=== PATIENT | male | born 1995 | race Hispanic/Latino ===

== ENCOUNTER 2021-05-07 23:57 | Emergency (ER) | payer OTHER, SELFPAY ==
[2021-05-08 00:25] VITALS: BP 156/99; PULSE 81; RESP 18; TEMP 36.9; O2SAT 100; BMI 26.4
--- NOTE | 2021-05-08 00:36 | ED.GENADULT ---
HPI - General Adult General Chief complaint: Skin/Abscess/Foreign Body Stated complaint: bump/pain on back of head x3 months Time Seen by Provider: 05/08/21 00:29 History of Present Illness HPI narrative: 25-year-old otherwise healthy gentleman who has had a small bump on the occiput of his head that is grown larger in size and now is fluctuant and causing increasing pain. He has not noticed any drainage, there has been no specific trauma to the area, he has had no fevers or chills, he has no neck pain. He denies any cough, palpitations, abdominal pain, or diarrhea. Related Data Allergies Allergy/AdvReac Type Severity Reaction Status Date / Time No Known Drug Allergies Allergy Verified 05/08/21 01:14 Review of Systems Review of Systems Narrative: Remainder of complete review of systems is otherwise unremarkable except for that included in the HPI. Patient History Social History Smoking Status: Never smoker Exam Narrative Exam Narrative: General: Alert appropriate in no acute distress Respiratory: Able to speak in full sentences, no obvious respiratory distress H EENT: There is only 2 x 2 cm fluctuant mass without surrounding cellulitis over the occiput of his head just to the right of midline Skin: No obvious rashes, warm and dry Neurologic: Grossly intact no obvious asymmetries or abnormalities Psych: appropriate insight and affect, cooperative Initial Vital Signs Initial Vital Signs: Vital Signs Temperature 98.4 F 05/08/21 00:25 Pulse Rate 81 05/08/21 00:25 Respiratory Rate 18 05/08/21 00:25 Blood Pressure 156/99 H 05/08/21 00:25 Pulse Oximetry 100 05/08/21 00:25 Procedures Abscess I/D Occiput of head: Time of procedure: 01:12 Site: scalp Local Anesthetic: lidocaine 2% Amount of anesthesia used (mL): 2 Technique: incised with #11 blade Amount of fluid expressed (mL): 8 Irrigation: No Packing used?: none Course Orders Ordered: ED Orders 05/08/21 01:15 Wound Culture and Gram Stain Stat Discontinued Medications Lidocaine HCl (Lidocaine 1% (Pf)) 2 ml INJ NOW ONE Stop: 05/08/21 00:45 Vital Signs Vital signs: Vital Signs - 8 hr 05/08/21 00:25 Temperature 98.4 F Pulse Rate 81 Respiratory Rate 18 Blood Pressure 156/99 H Pulse Oximetry 100 Medical Decision Making MDM Narrative Medical decision making narrative: 25-year-old gentleman with an abscess over the occiput. Initially thought it could be an infected sebaceous cyst however after incising it there was no sebaceous material and quite a bit of pus was returned without any complication. There was no evidence of surrounding cellulitis and antibiotics were not felt to be indicated at this time. He tolerated the procedure well. Wound culture was obtained. He is safe for home discharge Discharge Plan Departure Patient Disposition: Home Clinical Impression: Abscess of skin or subcutaneous tissue Qualifiers: Site of cutaneous abscess: head Qualified Code(s): L02.811 - Cutaneous abscess of head [any part, except face] Instructions: DI for Skin Abscess Activity Restrictions/Additional Instructions: Thank you for coming in tonight This was a small abscess but it does not look like it has infection in the skin surrounding it. I have gotten all of the pus out and at this point, you do not need any antibiotics. I suspect that this started from a small infection at the base of the hair follicle rather than a cyst. It is okay to wash her hair and if there is any additional drainage from the site that is okay too If it seems that it is recurring, you get a fever chills, you notice that it is hurting more or other there is redness around the area, please return to the ER for further evaluation I hope you heal quickly
[2021-05-08] MEDS: LIDOCAINE 1% (PF) 2 ML INJ (01:00)
== END 2021-05-08 01:20 | disposition home or self-care (01) ==
PROVIDERS: Emergency Provider Emergency Medicine
DX: L02.811 Cutaneous abscess of head [any part, except face] (principal)
CPT/HCPCS: 10060; 87070; 87077; 87147; 87186; 87205; 99283